=== PATIENT | male | born 1955 | race Caucasian/White ===

== ENCOUNTER → 2016-07-23 | Outpatient (CLI) | payer MEDICARE ==
[~2016-07-23] MED LIST: AMLO10TA2 PO; AMLO5TAB2 PO; ASPI-621 PO; ATOR20TA PO; ATOR80TA75 PO; BUPR150T73 PO; CARV6.252 PO; CYCL-259 PO; GABA100C8 PO; ISOS20TA58 PO; ISOS30TA8 PO; LOSA25TA5 PO; LOSA50TA6 PO; NAPR500T3 PO; NITR0.4T SL; NITR0.4T8 SL; PRAS10TA4 PO; RANI150T8 PO; TICA90TA PO; TRAM50TA2 PO; UMEC1DIS INH
[2016-07-23 10:19] LABS: HEMOGLOBIN 14.1 g/dL (13.7-18.0)
[2016-07-23 10:38] LABS: ASPARTATE AMINO TRANSFERASE 44 U/L (15-37); BLOOD UREA NITROGEN 10 mg/dL (7-18)
== END | disposition home or self-care (01) ==
LOC: STAR 08:47
DX: Z01.818 Encounter for other preprocedural examination (principal); I70.211 Atherosclerosis of native arteries of extremities with intermittent claudication, right leg
CPT/HCPCS: 36415; 80053; 81003; 85025; 93005

== ENCOUNTER 2016-07-29 09:04 | Inpatient (IN) | payer MEDICARE ==
[~2016-07-29] VITALS: Ht 177.8 cm; Wt 96.0 kg
[2016-07-29 09:38] VITALS: BP 158/99
[2016-07-29] MEDS ORDERED: PHENYLEPHRINE 10 MG/ML ONE (09:40)
[2016-07-29] MEDS ORDERED: ROCURONIUM 10 MG/ML ONE (09:40)
[2016-07-29] MEDS ORDERED: ONDANSETRON 2MG/ML, 2ML ONE ×2 (09:40→16:39)
[2016-07-29] MEDS ORDERED: CEFAZOLIN 1,000 MG ONE (09:40)
[2016-07-29] MEDS ORDERED: ETOMIDATE 20 MG/10 ML ONE (09:40)
[2016-07-29] MEDS: LACTATED RINGERS 1,000 ML IV SCH ×2 (10:06→20:36)
[2016-07-29] MEDS ORDERED: PAPAVERINE 30 MG/ML, 2ML ONE (11:33)
[2016-07-29] MEDS ORDERED: THROMBIN 20,000 UNIT VIAL TP ONE (11:34)
[2016-07-29] MEDS ORDERED: PROTAMINE SULFATE 10 MG/ML, 5ML ONE (11:34)
[2016-07-29] MEDS ORDERED: HEPARIN 1,000 UNITS/ML, 10ML ONE ×2 (11:34→13:59)
[2016-07-29] MEDS ORDERED: BUPIVACAINE/PF-EPI 0.25% 1:200K ONE (11:34)
[2016-07-29] MEDS ORDERED: MIDAZOLAM 1 MG/ML, 2ML ONE (11:44)
[2016-07-29] MEDS ORDERED: FENTANYL PF 250 MCG/5ML ONE (11:44)
[2016-07-29] MEDS ORDERED: REMIFENTANIL 2 MG ONE (11:45)
[2016-07-29 13:02] LABS: ABG COLLECTION SITE NOT DOCUMENTED
[2016-07-29] MEDS ORDERED: HYDROmorphone 1 MG/ML, 1ML ONE (15:56)
[2016-07-29] MEDS ORDERED: FENTANYL PF 100 MCG/2ML ONE (16:38)
[2016-07-29] MEDS ORDERED: ACETAMINOPHEN 650 MG/20.3 ML UDC ONE (16:38)
[2016-07-29] MEDS ORDERED: ACETAMINOPHEN 325 MG TABLET ONE (16:38)
[2016-07-29] MEDS ORDERED: OXYcodone 5 MG/5 ML ORAL.SOL UDC ONE (16:38)
[2016-07-29] MEDS: FENTANYL PF 100 MCG/2ML IV PRN ×2 (16:41→16:47)
[2016-07-29] MEDS ORDERED: HYDROmorphone 2 MG/ML, 1ML ONE (16:51)
[2016-07-29] MEDS: HYDROmorphone 1 MG/ML, 1ML IV PRN ×3 (16:53→17:37)
[2016-07-29] MEDS ORDERED: OXYcodone 5 MG/5 ML ORAL.SOL UDC PO PRN (17:00)
[2016-07-29] MEDS ORDERED: ACETAMINOPHEN 325 MG TABLET PO PRN (17:00)
[2016-07-29] MEDS ORDERED: hydrALAzine 20 MG/ML, 1ML IV PRN (17:00)
[2016-07-29] MEDS ORDERED: NITROGLYCERIN 0.4 MG BOTTLE (25 TABS) SL SCH (17:00)
[2016-07-29] MEDS ORDERED: CYCLOBENZAPRINE 10 MG TABLET PO PRN (17:00)
[2016-07-29] MEDS ORDERED: PROMETHAZINE 25 MG/ML, 1ML IV PRN (17:00)
[2016-07-29] MEDS ORDERED: ONDANSETRON 2MG/ML, 2ML IVPush PRN ×2 (17:00)
[2016-07-29] MEDS ORDERED: LABETALOL 5MG/ML, 20ML IV PRN (17:00)
[2016-07-29] MEDS ORDERED: EPHEDRINE 50 MG/ML, 1ML IVPush PRN (17:00)
[2016-07-29] MEDS ORDERED: METOPROLOL 1 MG/ML, 5ML IV PRN (17:00)
[2016-07-29] MEDS ORDERED: METOCLOPRAMIDE 5 MG/ML, 2ML IV PRN (17:00)
[2016-07-29] MEDS ORDERED: HALOPERIDOL 5 MG/ML ONE (17:26)
[2016-07-29] MEDS ORDERED: VISIPAQUE 270 MG/ML, 50ML BOTTLE ONE (17:38)
[2016-07-29] MEDS ORDERED: HALOPERIDOL 5 MG/ML IV ONE (18:00)
[2016-07-29 20:00] VITALS: BP 142/88
[2016-07-29] MEDS: ATORVASTATIN 80 MG TABLET PO SCH (21:47)
[2016-07-29] MEDS: FAMOTIDINE 20 MG TABLET PO SCH (21:48)
[2016-07-29] MEDS: ASPIRIN 325 MG TABLET EC PO SCH (21:49)
[2016-07-30] VITALS: BP 129/84
[2016-07-30 03:07] VITALS: BP 135/88
[2016-07-30] MEDS ORDERED: PNEUMOCOCCAL 23 VACCINE IM-VACC ONE (03:30)
[2016-07-30 05:52] LABS: BLOOD UREA NITROGEN 9 mg/dL (7-18)
[2016-07-30] MEDS: LACTATED RINGERS 1,000 ML IV SCH ×2 (06:02→14:13)
[2016-07-30] MEDS: ENOXAPARIN 40 MG/0.4 ML SQ SCH (06:04)
[2016-07-30 08:41] VITALS: BP 135/81
[2016-07-30] MEDS: AMLODIPINE 5 MG TABLET PO SCH (08:43)
[2016-07-30] MEDS: FAMOTIDINE 20 MG TABLET PO SCH ×2 (08:43→19:54)
[2016-07-30] MEDS: ISOSORBIDE MONONITRATE ER 30 MG TABLET PO SCH (08:43)
[2016-07-30] MEDS: LOSARTAN 50MG TABLET PO SCH (08:44)
[2016-07-30 15:00] VITALS: BP 150/60
[2016-07-30] MEDS: ASPIRIN 325 MG TABLET EC PO SCH (19:53)
[2016-07-30] MEDS: ATORVASTATIN 80 MG TABLET PO SCH (19:53)
[2016-07-30 21:47] VITALS: BP 144/75
[2016-07-30 23:45] VITALS: BP 136/79
[2016-07-31 04:19] VITALS: BP 151/91
[2016-07-31] MEDS: ENOXAPARIN 40 MG/0.4 ML SQ SCH (06:43)
[2016-07-31 07:04] VITALS: BP 160/96
[2016-07-31] MEDS: AMLODIPINE 5 MG TABLET PO SCH (08:06)
[2016-07-31] MEDS: ISOSORBIDE MONONITRATE ER 30 MG TABLET PO SCH (08:06)
[2016-07-31] MEDS: FAMOTIDINE 20 MG TABLET PO SCH (08:08)
[2016-07-31] MEDS: LOSARTAN 50MG TABLET PO SCH (08:08)
== END 2016-07-31 13:15 | disposition home or self-care (01) | DRG 253 ==
LOC: ORIP 09:04 → EDSTATUS 11:30 → 4NOR 18:32
PROC: 04CK0ZZ Extirpation of Matter from Right Femoral Artery, Open Approach (ICD-10-PCS; 2016-07-29)
PROC: 06BP0ZZ Excision of Right Saphenous Vein, Open Approach (ICD-10-PCS; 2016-07-29)
PROC: 04UK07Z Supplement Right Femoral Artery with Autologous Tissue Substitute, Open Approach (ICD-10-PCS; 2016-07-29)
PROC: B41F1ZZ Fluoroscopy of Right Lower Extremity Arteries using Low Osmolar Contrast (ICD-10-PCS; 2016-07-29)
PROC: 041K09L Bypass Right Femoral Artery to Popliteal Artery with Autologous Venous Tissue, Open Approach (ICD-10-PCS; principal; 2016-07-29 11:30)
DX: I70.211 Atherosclerosis of native arteries of extremities with intermittent claudication, right leg (principal); I74.3 Embolism and thrombosis of arteries of the lower extremities; I70.92 Chronic total occlusion of artery of the extremities; E78.5 Hyperlipidemia, unspecified; F17.210 Nicotine dependence, cigarettes, uncomplicated; I25.10 Atherosclerotic heart disease of native coronary artery without angina pectoris; J44.9 Chronic obstructive pulmonary disease, unspecified; R33.9 Retention of urine, unspecified; I25.2 Old myocardial infarction; Z95.5 Presence of coronary angioplasty implant and graft
CPT/HCPCS: 36415; 75710; 80048; 82040; 82800; 82803; 82810; 82947; 84132; 85018; 85025; 86850; 86900; 90732; J0690; J1170; J1644; J1650; J2250; J2270; J2405; J2720; J3010; Q9966; C1760; J1630; J2370; J2440; J7120